=== PATIENT | female | born 1980 | race Caucasian/White ===

== ENCOUNTER → 2016-10-07 | Outpatient (CLI) | payer BC | LOC: RAD 07:40 | PROVIDERS: ATTEND Internal Medicine Gastroenterology | DX: R10.9 Unspecified abdominal pain (principal); R10.11 Right upper quadrant pain | CPT/HCPCS: 78227; A9537; Q9969; J2805 ==

== ENCOUNTER → 2017-05-25 | Outpatient (CLI) | payer BC ==
--- NOTE | 2017-05-25 12:38 | XCELERA REPORT ---
[address] [address] Transthoracic Echocardiogram Report Name: DOUG ZAMORA Age: 36 yrs Gender: Female : 1980 Patient Status: Outpatient Patient Location: Study Date: 05/25/2017 09:04 AM Height: 65 in Weight: 153 lb BSA: 1.8 m2 Procedure: A complete two-dimensional transthoracic echocardiogram was performed (2D, M-mode, spectral and color flow Doppler). The study was technically adequate with some images being suboptimal in quality. Reason For Study: PALPITATIONS Ordering Physician: PARTH BAEZ Performed By: Pamella Carlin Interpretation Summary The left ventricular ejection fraction is normal. There is normal left ventricular wall thickness. The left ventricle is grossly normal size. Doppler measurements suggest normal left ventricular diastolic function Wall motion cannot be accurately commented on, but no definite regional wall motion abnormalities noted. The right ventricle is grossly normal size. The right ventricular systolic function is normal. The right atrium is normal. The left atrial size is normal. There is no mitral valve stenosis. There is a mild amount of mitral regurgitation There is no aortic valve stenosis No aortic regurgitation is present. There is a trace or physiologic amount of tricuspid regurgitation Right ventricular systolic pressure is at the upper limits of normal The pulmonic valve is not well visualized. The aortic root is not well visualized but is probably normal size. The inferior vena cava appeared normal and decreased > 50% with respiration (RAP 5-10 mmHg) There is no pericardial effusion. MMode/2D Measurements & Calculations RVDd: 2.3 cm LVIDd: 4.9 cm FS: 30.1 % Ao root diam: 2.9 cm IVSd: 0.82 cm LVIDs: 3.4 cm EDV(Teich): 113.8 ml LVPWd: 0.92 cmESV(Teich): 48.6 ml Ao root area: 6.4 cm2 EF(Teich): 57.3 % LA dimension: 3.3 cm LVOT diam: 2.0 cm LVOT area: 3.0 cm2 Doppler Measurements & Calculations MV E max brandt: MV P1/2t max brandt: Ao V2 max: LV V1 max P.4 cm/sec 79.1 cm/sec 121.9 cm/sec 3.2 mmHg MV A max brandt: MV P1/2t: 47.0 msec Ao max PG: LV V1 max: 69.0 cm/sec MVA(P1/2t): 4.7 cm2 5.9 mmHg 89.8 cm/sec MV E/A: 1.2 MV dec slope: ARCHANA(V,D): 2.2 cm2 492.8 cm/sec2 PA V2 max: TR max brandt: 78.5 cm/sec 196.7 cm/sec PA max PG: TR max P.5 mmHg 2.5 mmHg Left Ventricle The left ventricle is grossly normal size. There is normal left ventricular wall thickness. The left ventricular ejection fraction is normal. Doppler measurements suggest normal left ventricular diastolic function. Wall motion cannot be accurately commented on, but no definite regional wall motion abnormalities noted. Right Ventricle The right ventricle is grossly normal size. There is normal right ventricular wall thickness. The right ventricular systolic function is normal. Atria The right atrium is normal. The left atrial size is normal. Interarterial septum not well visualized and not well dopplered. Cannot comment on ASD/PFO presence. Mitral Valve The mitral valve is grossly normal. There is no mitral valve stenosis. There is a mild amount of mitral regurgitation. Aortic Valve The aortic valve is grossly normal. There is no aortic valve stenosis. No aortic regurgitation is present. Tricuspid Valve The tricuspid valve is not well visualized, but is grossly normal. There is no tricuspid stenosis. There is a trace or physiologic amount of tricuspid regurgitation. Right ventricular systolic pressure is at the upper limits of normal. Pulmonic Valve The pulmonic valve is not well visualized. Great Vessels The aortic root is not well visualized but is probably normal size. The inferior vena cava appeared normal and decreased > 50% with respiration (RAP 5-10 mmHg). Effusions There is no pericardial effusion. : PARTH BAEZ > Stephanie Delvalle
== END ==
LOC: SP 08:57
PROVIDERS: ATTEND Internal Medicine Cardiovascular Disease
DX: R00.2 Palpitations (principal)
CPT/HCPCS: 93306